=== PATIENT | female | born 1990 | race Caucasian/White ===

== ENCOUNTER → 2018-02-12 | Outpatient (CLI) | payer BC ==
--- NOTE | 2018-02-12 11:39 | Diagnostic Imaging Report ---
PROCEDURE:SOFT TISSUE ULTRASOUND COMPARISON:None. INDICATIONS:SOFT TISSUE MASS ABDOMEN TECHNIQUE:Grayscale and color Doppler ultrasound evaluation analysis was performed of the palpable region in the left upper abdomen FINDINGS: No abnormal findings are seen to correspond with the palpable region in the left upper abdomen. No soft tissue mass, collection, or adenopathy. CONCLUSION: As above Dictated by: Adama Mata M.D. on 02/12/2018 at 11:40 Electronically approved by: Adama Mata M.D. on 02/12/2018 at 11:40
== END ==
LOC: US 10:22
PROVIDERS: ATTEND Family Medicine
DX: M79.9 Soft tissue disorder, unspecified (principal); R19.00 Intra-abdominal and pelvic swelling, mass and lump, unspecified site
CPT/HCPCS: 76882

== ENCOUNTER 2018-09-03 21:02 | Emergency (ER) | payer BC, OTHER ==
[~2018-09-03] VITALS: Ht 162.6 cm; Wt 104.3 kg
--- OUTSIDE RECORDS SUMMARY | 2018-09-03 21:04 | XMS REPORT ---
Author Author [facility] Address Unknown Phone Unavailable Care Team Providers Care Sap Mobility Architect Name Role Phone PREETHI STAFFORD Unavailable Unavailable Problems This patient has no known problems. Allergies, Adverse Reactions, Alerts This patient has no known allergies or adverse reactions. Medications This patient has no known medications. Results Test Description Test Time Test Comments Text Results Atomic Results Result Comments US EXTREMITY LEDESMA NON-VAS [place] [address] Patient Name: GE CARSON MR #: [id number] : 1990 Age/Sex: 27/F Req #: [id number] Adm Physician: Ordered by: PREETHI STAFFORD DO Report #: [id number] Location: Room/Bed: Procedure: [id number] US/US EXTREMITY LEDESMA NON-VAS Exam Date: 02/12/18 Exam Time: 1044 REPORT STATUS: Signed PROCEDURE: SOFT TISSUE ULTRASOUND COMPARISON: None. INDICATIONS: SOFT TISSUE MASS ABDOMEN TECHNIQUE: Grayscale and color Doppler ultrasound evaluation analysis was performed of the palpable region in the left upper abdomen FINDINGS: No abnormal findings are seen to correspond with the palpable region in the left upper abdomen. No soft tissue mass, collection, or adenopathy. CONCLUSION: As above Dictated by: Kaykay Mata M.D. on 02/12/2018 at 11:40 Electronically approved by: Kaykay Mata M.D. on 02/12/2018 at 11:40 Dictated By: KAYKAY MATA MD [id number] Transcribed By: JOSÉ ANTONIO on 02/12/18 1140 COPY TO: PREETHI STAFFORD DO
--- NOTE | 2018-09-03 21:49 | Diagnostic Imaging Report ---
EXAM: CHEST 2 VIEWS, PA and lateral INDICATION: Chest pain left chest COMPARISON: None FINDINGS: LINES/TUBES: None LUNGS: No consolidations or edema. PLEURA: No effusions or pneumothorax. HEART AND MEDIASTINUM: Normal size and contour. BONES AND SOFT TISSUES: No acute findings. IMPRESSION: No acute thoracic abnormality. Signed by: Dr. Dayanna Sibley M.D. on 09/03/2018 9:46 PM
== END 2018-09-03 22:32 | disposition home or self-care (01) ==
LOC: ER 21:02
DX: S20.212A Contusion of left front wall of thorax, initial encounter (principal); S30.811A Abrasion of abdominal wall, initial encounter; V43.52XA Car driver injured in collision with other type car in traffic accident, initial encounter; Y92.488 Other paved roadways as the place of occurrence of the external cause; J45.909 Unspecified asthma, uncomplicated
CPT/HCPCS: 71046; 99283